=== PATIENT | female | born 1980 | race Caucasian/White ===

== ENCOUNTER 2020-07-28 09:13 | Emergency (ER) | payer BC ==
[2020-07-28 09:23] VITALS: BP 129/77
[2020-07-28] MEDS ORDERED: LIDOCAINE 1% INJ-PF (10 MG/ML) 30 ML SDV INJ ONE (09:53)
--- NOTE | 2020-07-28 10:47 | ER Document Report ---
ED General - General Chief Complaint: Abscess Stated Complaint: RIGHT LEG PAIN, SWELLING Time Seen by Provider: 07/28/20 09:36 Primary Care Provider: APRIL KAPLAN MD [Primary Care Provider] - Follow up as needed Mode of Arrival: Ambulatory Information source: Patient - [facility] Notes: Patient presents with right leg pain and swelling. She states she noticed a "abscess" approximately 6 days ago. She has seen her family doctor for this and has been prescribed 2 different ab sepsis antibiotics. She states she is taking the Keflex but is not filled the other prescription. She is not sure what the other prescription is for. She feels as if the abscess is not improving. She states that she does have an appointment in surgery clinic in 3 days but she was concerned about the leg swelling so she came into the emergency department. No fevers. No previous history of abscesses. - Related Data Allergies/Adverse Reactions: No Known Allergies Allergy (Verified 07/28/20 09:30) Past Medical History - General Information source: Patient - Social History Smoking Status: Never Smoker Chew tobacco use (# tins/day): No Frequency of alcohol use: Occasional Drug Abuse: None Family History: Reviewed & Not Pertinent - Past Medical History Cardiac Medical History: Denies: Hx Coronary Artery Disease, Hx Heart Attack, Hx Hypertension Pulmonary Medical History: Denies: Hx Asthma, Hx Bronchitis, Hx COPD, Hx Pneumonia Neurological Medical History: Denies: Hx Cerebrovascular Accident, Hx Seizures Musculoskeletal Medical History: Denies Hx Arthritis Past Surgical History: Reports: Hx Hysterectomy - Immunizations Hx Diphtheria, Pertussis, Tetanus Vaccination: No Review of Systems - Review of Systems Constitutional: denies: Chills, Fever Cardiovascular: denies: Chest pain, Palpitations Respiratory: denies: Cough, Short of breath -: Yes All other systems reviewed and negative Physical Exam - Vital signs Vitals: Temp Pulse Resp BP Pulse Ox 98.3 F 71 17 129/77 H 97 07/28/20 09:18 07/28/20 09:18 07/28/20 09:18 07/28/20 09:18 07/28/20 09:18 Interpretation: Normal - General General appearance: Appears well, Alert - HEENT Head: Normocephalic, Atraumatic Eyes: Normal Pupils: PERRL - Respiratory Respiratory status: No respiratory distress Chest status: Nontender Breath sounds: Normal Chest palpation: Normal - Cardiovascular Rhythm: Regular Heart sounds: Normal auscultation Murmur: No - Abdominal Inspection: Normal Distension: No distension Bowel sounds: Normal Tenderness: Nontender Organomegaly: No organomegaly - Back Back: Normal, Nontender - Extremities General upper extremity: Normal inspection, Nontender, Normal color, Normal ROM, Normal temperature General lower extremity: Tender - Right lower extremity has an area of fluctuance tenderness and erythema with some induration just inferior to the knee on the anterior surface. This area is consistent with an abscess., Normal ROM, Normal temperature, Normal weight bearing. No: Kane's sign - Neurological Neuro grossly intact: Yes Cognition: Normal Orientation: AAOx4 Colby Coma Scale Eye Opening: Spontaneous Colby Coma Scale Verbal: Oriented Bridgman Coma Scale Motor: Obeys Commands Colby Coma Scale Total: 15 Speech: Normal Motor strength normal: LUE, RUE, LLE, RLE Sensory: Normal - Psychological Associated symptoms: Normal affect, Normal mood - Skin Skin Temperature: Warm Skin Moisture: Dry Skin Color: Erythema - Right lower extremity Course - Vital Signs Vital signs: Temp Pulse Resp BP Pulse Ox 98.3 F 71 17 129/77 H 97 07/28/20 09:18 07/28/20 09:18 07/28/20 09:18 07/28/20 09:18 07/28/20 09:18 Procedures - Incision and Drainage Right Lower Leg Time completed: 10:44 Type: Simple Anesthetic type: 1% Lidocaine mL's of anesthetic: 2 Blade size: 11 I&D procedure: Iodoform packing placed, Sterile dressing applied Incision Method: Incision made by scalpel Discharge - Discharge Clinical Impression: Abscess of right lower extremity Condition: Stable Disposition: HOME, SELF-CARE Instructions: Abscess ([facility]), Oral Narcotic Medication ([facility]), Trimethoprim-Sulfa ([facility]), Post Incision and Drainage Additional Instructions: Please have the abscess rechecked in 2 to 3 days by a medical provider. Prescriptions: Hydrocodone/Acetaminophen [Cecil 5-325 mg Tablet] 1 tab PO Q6 PRN 3 Days #12 tablet PRN Reason: Sulfamethoxazole/Trimethoprim [Septra-Ds 800-160 mg Tablet] 1 tab PO BID 7 Days #14 tablet Forms: Return to Work Referrals: APRIL KAPLAN MD [Primary Care Provider] - 07/31/20
== END 2020-07-28 11:13 | disposition home or self-care (01) ==
LOC: ER 09:13
PROC: 0H9KXZZ Drainage of Right Lower Leg Skin, External Approach (ICD-10-PCS; principal; 2020-07-28)
DX: L02.415 Cutaneous abscess of right lower limb (principal); M79.604 Pain in right leg; M79.89 Other specified soft tissue disorders
CPT/HCPCS: 99283; 10060; J3490